=== PATIENT | female | born 1950 | race Caucasian/White ===

== ENCOUNTER → 2019-06-02 | Outpatient (CLI) | payer OTHER ==
[~2019-06-02] MED LIST: CALCAVITD PO; CIPR500 PO; Crestor20 MG PO; LEVSOD75 PO; METR500 PO; OXYACE5T PO; PROM25 PO; RISE30 PO; ROSU10TA PO
[2019-06-02 19:21] LABS: Bilirubin, Urine Neg (Neg); Blood, Urine Neg (Neg); Glucose Qualitative, Urine Neg (Neg); Ketones, Urine Neg (Neg); Leukocyte Esterase, Urine Neg (Neg); Nitrite, Urine Neg (Neg); Protein, Urine Neg (Neg); Urobilinogen, Urine NORM (Normal); pH, Urine 6.5 (5.0-8.0)
[2019-06-02 19:23] LABS: Appearance, Urine Clear (Clear); Color, Urine Yellow (P-Yellow)
== END | disposition home or self-care (01) ==
LOC: LAB SHORT 15:36 → LAB 15:36
PROVIDERS: Nurse Practitioner Family
DX: I10 Essential (primary) hypertension (principal)
CPT/HCPCS: 81003

== ENCOUNTER → 2019-11-18 | Outpatient (CLI) | payer OTHER ==
[2019-11-18 10:58] LABS: BASOPHILS ABSOLUTE AUTO 0.03 K/mm3 (0.00-0.23); BASOPHILS PERCENT AUTO 1 % (0-2); EOSINOPHILS ABSOLUTE AUTO 0.03 K/mm3 (0.00-0.68); EOSINOPHILS PERCENT AUTO 1 % (0-6); Hematocrit 42.3 % (33.0-51.0); Hemoglobin 14.2 g/dL (11.5-16.0); IMMATURE GRAN ABSOLUTE AUTO 0.01 K/mm3 (0.00-0.10); IMMATURE GRAN PERCENT AUTO 0 % (0-1); LYMPHOCYTES ABSOLUTE AUTO 1.16 K/mm3 (0.84-5.20); LYMPHOCYTES PERCENT AUTO 18 % (21-46); MONOCYTES ABSOLUTE AUTO 0.46 K/mm3 (0.16-1.47); MONOCYTES PERCENT AUTO 7 % (4-13); Mean Corpuscular HGB 29.8 pg (26.0-34.0); Mean Corpuscular HGB Conc 33.6 g/dL (31.5-36.5); Mean Corpuscular Volume 89 fL (80-100); Mean Platelet Volume 9.5 fL (9.1-12.4); NEUTROPHILS ABSOLUTE AUTO 4.65 K/mm3 (1.96-9.15); NEUTROPHILS PERCENT AUTO 73 % (41-73); Platelet Count 277 K/mm3 (150-400); RDW Coefficient Variation 12.6 % (11.7-14.2); RDW Standard Deviation 40.7 fL (35.1-46.3); Red Blood Cell Count 4.76 M/mm3 (3.80-5.20); White Blood Cell Count 6.34 K/mm3 (4.00-11.30)
[2019-11-18 11:02] LABS: Anion Gap 13 mmol/L (6-16); Blood Urea Nitrogen 8 mg/dL (8-24); Bun/Creatinine Ratio 10.7 (12.0-20.0); CO2, Blood 26 mmol/L (21-32); Calcium, Blood 9.2 mg/dL (8.5-10.1); Chloride, Blood 106 mmol/L (98-108); Creatinine, Blood 0.75 mg/dL (0.40-1.00); Glomerular Filtration Rate >60 (60-); Glucose, Blood 117 mg/dL (70-99); Potassium, Blood 3.9 mmol/L (3.5-5.5); Sodium, Blood 145 mmol/L (136-145)
== END | disposition home or self-care (01) ==
LOC: LAB SHORT 10:51 → LAB EV 10:51
PROVIDERS: Physician Assistant Surgical
DX: R11.0 Nausea (principal)
CPT/HCPCS: 80048; 85025

== ENCOUNTER 2019-12-31 21:48 | Emergency (ER) | payer OTHER ==
[~2019-12-31] VITALS: Ht 162.6 cm; Wt 67.1 kg
[~2019-12-31 21:48] MED LIST changes: +ACIDOPHILUS1 EAC3 PO; +ELIQUIS5 MG PO; +FLUT.05NI; +LOSA25 PO; +MELATONIN5 M1; +METO25ER PO
[2019-12-31 22:57] LABS: Source, Urine Clean Catch
[2019-12-31 23:10] LABS: Bilirubin, Urine Neg (Neg); Blood, Urine 5+ (Neg); Glucose Qualitative, Urine Neg (Neg); Ketones, Urine 2+ (Neg); Leukocyte Esterase, Urine Neg (Neg); Nitrite, Urine Neg (Neg); Protein, Urine 4+ (Neg); Specific Gravity, Urine 1.015 (1.003-1.022); Urobilinogen, Urine NORM (Normal)
[2019-12-31 23:12] LABS: Appearance, Urine Turbid (Clear); Color, Urine Black (P-Yellow); Red Blood Cells, Urine 0-2 /hpf (0-2)
[2019-12-31 23:13] LABS: Amorphous Mod (0-Heavy); Bacteria Mod /hpf; Squamous Epithelial Cells Mod /hpf (Few)
[2020-01-01 00:11] LABS: BASOPHILS ABSOLUTE AUTO 0.04 K/mm3 (0.00-0.23); BASOPHILS PERCENT AUTO 1 % (0-2); EOSINOPHILS ABSOLUTE AUTO 0.07 K/mm3 (0.00-0.68); EOSINOPHILS PERCENT AUTO 1 % (0-6); Hematocrit 42.6 % (33.0-51.0); Hemoglobin 13.6 g/dL (11.5-16.0); IMMATURE GRAN ABSOLUTE AUTO 0.02 K/mm3 (0.00-0.10); IMMATURE GRAN PERCENT AUTO 0 % (0-1); LYMPHOCYTES ABSOLUTE AUTO 1.59 K/mm3 (0.84-5.20); LYMPHOCYTES PERCENT AUTO 21 % (21-46); MONOCYTES PERCENT AUTO 9 % (4-13); Mean Corpuscular HGB 28.9 pg (26.0-34.0); Mean Corpuscular HGB Conc 31.9 g/dL (31.5-36.5); Mean Corpuscular Volume 91 fL (80-100); Mean Platelet Volume 9.4 fL (9.1-12.4); NEUTROPHILS ABSOLUTE AUTO 5.21 K/mm3 (1.96-9.15); NEUTROPHILS PERCENT AUTO 68 % (41-73); Platelet Count 263 K/mm3 (150-400); RDW Coefficient Variation 12.4 % (11.7-14.2); RDW Standard Deviation 41.3 fL (35.1-46.3); White Blood Cell Count 7.63 K/mm3 (4.00-11.30)
[2020-01-01 00:30] LABS: Alanine Aminotransfer (ALT/SGP 35 U/L (12-78); Albumin, Blood 3.8 g/dL (3.4-5.0); Albumin/Globulin Ratio 1.2 (0.8-1.8); Alk Phos 73 U/L (50-136); Anion Gap 8 mmol/L (6-16); Aspartate Aminotrans (AST/SGOT 98 U/L (12-37); Bilirubin, Total 1.5 mg/dL (0.1-1.0); Blood Urea Nitrogen 15 mg/dL (8-24); Bun/Creatinine Ratio 15.7 (12.0-20.0); CO2, Blood 25 mmol/L (21-32); Calcium, Blood 9.4 mg/dL (8.5-10.1); Chloride, Blood 108 mmol/L (98-108); Creatinine, Blood 0.96 mg/dL (0.40-1.00); Globulin, Blood 3.2 g/dL (2.2-4.0); Glomerular Filtration Rate >60 (60-); Glucose, Blood 98 mg/dL (70-99); Potassium, Blood 3.9 mmol/L (3.5-5.5); Sodium, Blood 141 mmol/L (136-145)
== END 2020-01-01 01:09 | disposition home or self-care (01) ==
LOC: ER 21:48
PROVIDERS: Physician Assistant
DX: R31.9 Hematuria, unspecified (principal); R74.8 Abnormal levels of other serum enzymes; Z79.899 Other long term (current) drug therapy; E03.9 Hypothyroidism, unspecified; M81.0 Age-related osteoporosis without current pathological fracture
CPT/HCPCS: 36415; 80053; 81001; 83690; 85025; 87086; 99283

== ENCOUNTER → 2024-09-16 | Day surgery (SDC) | payer OTHER ==
[~2024-09-16] MED LIST changes: +Amlodipine Bes2.5 MG PO; +FLUO10 PO; +LATANOPROST2.5 M3 BOTHEYES; +MULVITA PO; +PROBIOTIC1 EA15 PO; +UBID10 PO; +VITAMIN D5000 UNIT PO
== END ==
LOC: MOI MAM 08:49
DX: D05.12 Intraductal carcinoma in situ of left breast (principal)
CPT/HCPCS: 19281; A4648

== ENCOUNTER 2024-10-01 07:32 | Day surgery (SDC) | payer OTHER ==
[~2024-10-01] VITALS: Ht 160 cm; Wt 64.8 kg
[2024-10-01] VITALS (9 sets, daily range): BP systolic 127–147; BP diastolic 68–84
[2024-10-01] MEDS ORDERED: Lactated Ringer's 1,000 ML IV SCH (07:50)
[2024-10-01] MEDS ORDERED: CeFAZolin Sodium 2,000 MG in NS 100 ML IV SCH (07:50)
--- NOTE | 2024-10-01 08:13 | NUR ---
Ambulatory in Day Surgery. History, Chart, Medications and Allergies reviewed before start of procedure. Lungs clear T/O to Auscultation. Patient confirms NPO status and agrees with scheduled surgery. Pre-Op teaching done. Pt verbalizes understanding. Patient States Post-Procedure ride home has been arranged. PT BELONGINGS PLACED UNDERNEATH GURNEY FOR SAFEKEEPING. PT GLASSES TAKEN TO PACU FOR SAFEKEEPING.
[2024-10-01] MEDS ORDERED: Bupivacaine 0.5% HCl 5 MG/ML 30MLVIAL ONE (08:35)
[2024-10-01] MEDS ORDERED: propofoL 20 ML IV ONE (08:52)
[2024-10-01] MEDS ORDERED: FentaNYL Citrate 50 MCG/ML 2 ML Injection ONE (08:52)
[2024-10-01] MEDS ORDERED: Ondansetron HCl 2 MG / ML 2ML Vial ONE (09:02)
[2024-10-01] MEDS ORDERED: Dexamethasone Sod Phos 10 MG/ML 1ML VIAL ONE (09:02)
[2024-10-01] MEDS ORDERED: HydrALAZINE HCl 20 MG / ML 1ML Vial IV PRN (09:40)
[2024-10-01] MEDS ORDERED: ePHEDrine Sulfate 50 MG/ML 1ML Injection IV PRN (09:40)
[2024-10-01] MEDS ORDERED: Labetalol HCL 5 MG/ML 4ML Injection (Single Dose) IV PRN (09:40)
[2024-10-01] MEDS ORDERED: HYDROmorphone HCl/Pf 1MG SYR IV PRN (09:40)
[2024-10-01] MEDS ORDERED: FentaNYL Citrate 50 MCG/ML 2 ML Injection IV PRN ×2 (09:40)
[2024-10-01] MEDS ORDERED: Scopolamine Hydrobromide Patch TOP SCH (09:40)
[2024-10-01] MEDS ORDERED: Rocuronium Bromide 10 MG/ML 5ML Injection IV ONE (09:45)
[2024-10-01] MEDS ORDERED: Albuterol 2.5 MG/3 ML VIAL INH PRN (09:45)
[2024-10-01] MEDS ORDERED: Droperidol 5 mg/2 ml Vial IV PRN (09:45)
[2024-10-01] MEDS ORDERED: Phenylephrine HCl 10mg/ml 1 ml Vial ONE (09:45)
[2024-10-01] MEDS ORDERED: Ondansetron HCl 2 MG / ML 2ML Vial IV PRN (09:45)
[2024-10-01] MEDS ORDERED: Morphine Sulfate 4 MG/1 ML Injection IV PRN (09:45)
[2024-10-01] MEDS ORDERED: Phenylephrine HCl 100 MCG/ML-NS 10MLSYR (1MG/10ML) ONE (09:45)
[2024-10-01] MEDS ORDERED: Sugammadex Sodium 200 MG/2ML SDV (100 MG/ML) ONE (09:46)
[2024-10-01] MEDS ORDERED: HYDROcodone 5-APAP 325 TAB PO PRN (10:20)
--- NOTE | 2024-10-01 11:24 | NUR ---
Discharge instructions reviewed with patient. Patient verbalizes understanding. Copy given to patient to take home. Brestbinder in place. Prescription placed in discharge folder. Patient States Post-Procedure ride home has been arranged. Discharged via wheelchair to private car for ride home.
== END 2024-10-01 11:25 | disposition home or self-care (01) ==
LOC: ORSCMMR 07:32 → ORD 09:00 → ORSCMMR 11:25
PROVIDERS: Surgery
PROC: 0HBU0ZZ Excision of Left Breast, Open Approach (ICD-10-PCS; principal; 2024-10-01 09:00)
DX: D05.12 Intraductal carcinoma in situ of left breast (principal); R92.0 Mammographic microcalcification found on diagnostic imaging of breast; Z17.0 Estrogen receptor positive status [ER+]; I10 Essential (primary) hypertension; J44.9 Chronic obstructive pulmonary disease, unspecified; Z87.891 Personal history of nicotine dependence; Z86.718 Personal history of other venous thrombosis and embolism; F41.1 Generalized anxiety disorder; K21.9 Gastro-esophageal reflux disease without esophagitis; E03.9 Hypothyroidism, unspecified; E78.2 Mixed hyperlipidemia; Z79.899 Other long term (current) drug therapy
CPT/HCPCS: 88307; A9270; J0690; J1100; J2371; J2405; J2704; J3010; J7120

== ENCOUNTER 2024-10-28 06:58 | Day surgery (SDC) | payer OTHER ==
[2024-10-28] VITALS (8 sets, daily range): BP systolic 110–133; BP diastolic 65–83
[~2024-10-28] VITALS: Ht 160 cm; Wt 64.0 kg
[~2024-10-28 06:58] MED LIST changes: +Avastin25 MG/ML INJ; +CeFAZolin Sodium 2,000 MG in NS 100 ML IV SCH; +FentaNYL Citrate 50 MCG/ML 2 ML Injection ONE; +Lactated Ringer's 1,000 ML IV SCH; +propofoL 20 ML IV ONE
[2024-10-28] MEDS ORDERED: Bupivacaine 0.5% HCl 5 MG/ML 30MLVIAL ONE (07:04)
[2024-10-28] MEDS ORDERED: Lidocaine HCl 1% 30 ML SDV ONE (07:04)
[2024-10-28] MEDS ORDERED: CeFAZolin Sodium 2,000 MG VIAL ONE (07:17)
--- NOTE | 2024-10-28 07:28 | NUR ---
History, Chart, Medications and Allergies reviewed before start of procedure. Patient confirms NPO status and agrees with scheduled surgery. Patient reports completing Chlorhexadine shower X2 prior to admission to hospital. Pre-Op teaching done. Pt verbalizes understanding. Lungs clear T/O to Auscultation.
[2024-10-28] MEDS ORDERED: Lidocaine HCl 2% Jelly 120MG/6ML SYR (20MG PER ML) ONE (07:58)
[2024-10-28] MEDS ORDERED: Ondansetron HCl 2 MG / ML 2ML Vial ONE (08:11)
[2024-10-28] MEDS ORDERED: Dexamethasone Sod Phos 10 MG/ML 1ML VIAL ONE (08:11)
[2024-10-28] MEDS ORDERED: ePHEDrine Sulfate 50 MG/ML 1ML Injection ONE (08:24)
[2024-10-28] MEDS ORDERED: HYDROcodone 5-APAP 325 TAB PO PRN (09:15)
--- NOTE | 2024-10-28 10:02 | NUR ---
Patient up to Ambulate independently. Gait steady. Discharge instructions reviewed with patient. Patient verbalizes understanding. Copy given to patient to take home. Discharged via wheelchair to private car for ride home.
== END 2024-10-28 10:02 | disposition home or self-care (01) ==
LOC: ORSCMMR 06:58 → ORD 08:00 → ORSCMMR 10:02
PROVIDERS: Surgery
PROC: 0HBU0ZX Excision of Left Breast, Open Approach, Diagnostic (ICD-10-PCS; principal; 2024-10-28 08:00)
PROC: 0HBU0ZZ Excision of Left Breast, Open Approach (ICD-10-PCS; principal; 2024-10-28 08:00)
DX: D05.12 Intraductal carcinoma in situ of left breast (principal); Z17.0 Estrogen receptor positive status [ER+]; I10 Essential (primary) hypertension; E78.5 Hyperlipidemia, unspecified; J44.9 Chronic obstructive pulmonary disease, unspecified; Z87.891 Personal history of nicotine dependence; E03.9 Hypothyroidism, unspecified; Z86.718 Personal history of other venous thrombosis and embolism
CPT/HCPCS: 88307; A9270; J0690; J1100; J2405; J2704; J3010; J7120